=== PATIENT | male | born 1960 | race Caucasian/White ===

== ENCOUNTER 2017-04-13 20:16 | Emergency (ER) | payer BC ==
--- NOTE | 2017-04-13 20:28 | Emergency Department Record ---
History of Present Illness - General Chief Complaint: Wound, check Stated Complaint: POSS INFECTION ON RT HAND Time Seen by Provider: 04/13/17 20:23 Source: Patient, Old records reviewed Limitations: No limitations - History of Present Illness Initial Comments: The patient is here due to pain and swelling onset today to the R dorsal hand around a sutured laceration. The patient was here yesterday at around 6pm due to a R hand laceration and had the wound stitched. He states there was no tendon injury. Today the area around the laceration is slightly swollen, red and tender. He denies any other issues and states he did receive a Td yesterday. Complaint: Wound re-check Onset/Timin -: Days(s) Initial Visit For: Laceration Returns Today for: Wound recheck Symptoms Since Prior Visit: Worsening pain, Worsening redness, Worsening swelling Associated Symptoms: None - Related Data Home Medications Medication Instructions Recorded Confirmed Last Taken Omeprazole 90 Days 04/12/17 Unknown Previous Rx's Medication Instructions Recorded Cephalexin [Keflex] 500 mg PO QID #28 cap 04/13/17 Allergies Allergy/AdvReac Type Severity Reaction Status Date / Time No Known Allergies Allergy Unverified 04/12/17 19:47 Travel Screening - Travel/Exposure Within Last 30 Days Have you traveled within the last 30 days?: No - Travel/Exposure Within Last Year Have you traveled outside the [place] in the last year?: No - Additonal Travel Details Have you been exposed to anyone with a communicable illness?: No - Travel Symptoms Symptom Screening: None Past Medical History - SOCIAL HISTORY Smoking Status: Never smoker Alcohol Use: Rare Drug Use: None - RESPIRATORY Hx Respiratory Disorders: No - CARDIOVASCULAR Hx Cardio Disorders: No - NEURO Hx Neuro Disorders: No - GI Hx GI Disorders: No - Hx Genitourinary Disorders: No - ENDOCRINE Hx Endocrine Disorders: No - MUSCULOSKELETAL Hx Musculoskeletal Disorders: No - PSYCH Hx Psych Problems: No - HEMATOLOGY/ONCOLOGY Hx Hematology/Oncology Disorders: No Family Medical History Any Significant Family History?: No Physical Exam - General General Appearance: Alert, Oriented x3, Cooperative, No acute distress - Head Head exam: Atraumatic, Normocephalic, Normal inspection - Eye Eye exam: Normal appearance, PERRL - Extremities Extremities exam: Full ROM (There is normal ROM to the R 2nd finger with only mild superficial skin pain with full extension.), Normal capillary refill, Tenderness. negative: Normal inspection (There is slight swelling, erythema, and tenderness surrounding the R dorsal hand laceration. ) Image of Hand: 1 - laceration already sutured. Course Vital Signs 04/13/17 20:18 Temperature 98.3 F Pulse Rate 89 Respiratory 20 Rate Blood Pressure 137/95 Pulse Ox 96 - Reevaluation(s) Reevaluation #1: The patient is doing well. I did discuss the xrays with him and the need for warm compresses, elevation and oral Abx's. He is to return to the ER if not better tomorrow. 04/13/17 21:16 Medical Decision Making - Data Complexity MDM Data: X-Ray Ordered and/or Reviewed - Radiology Data Radiology results: Report reviewed (R Hand: No acute injury, FB or soft tissue gas per Rad.) Disposition Disposition: Discharge Clinical Impression: Infected wound Disposition: Home, Self-Care Condition: (1) Good Instructions: Wound Infection (ED) Additional Instructions: Please use warm compresses to the R hand during the day and elevate when possible. Please continue the Keflex as directed. Please return to the ER tomorrow if the hand is not better or for any worsening signs of infection such as pain, swelling, or redness. Prescriptions: Cephalexin [Keflex] 500 mg PO QID #28 cap Forms: Patient Portal Access Time of Disposition: 21:18 Quality - Quality Measures Quality Measures: N/A - Blood Pressure Screening View Details: Yes Blood Pressure Classification: Hypertensive Reading Systolic Measurement: 137 Diastolic Measurement: 95 Screening for High Blood Pressure: < Pre-Hypertensive BP, F/U Documented > [ [id number]] Pre-Hypertensive Follow-up Interventions: Follow-up with rescreen every year.
[2017-04-13] MEDS: CEFAZOLIN 2 Gram 2 GM/50 ML BAG IVPB ONE (20:42)
[2017-04-13] MEDS: CEPHALEXIN 500 MG CAPSULE PO STA (21:22)
--- NOTE | 2017-04-14 15:04 | RADIOLOGY REPORT ---
EXAM: RIGHT HAND HISTORY: INJURY. TECHNIQUE: Three views of the right hand were obtained. Comparison: none. Encounter: Initial. FINDINGS: Deformity of the distal tuft of the third digit may relate to old trauma. Negative for acute fracture or dislocation. Dorsal soft tissue swelling. No soft tissue gas. IMPRESSION: 1. DORSAL SOFT TISSUE SWELLING. NO SOFT TISSUE GAS. 2. PROBABLE OLD TRAUMA OF THE DISTAL THIRD DIGIT. JOB NUMBER: [id number] MTDD
== END 2017-04-13 21:38 | disposition home or self-care (01) ==
LOC: ER 20:16
DX: S61.411A Laceration without foreign body of right hand, initial encounter (principal); L08.9 Local infection of the skin and subcutaneous tissue, unspecified
CPT/HCPCS: 96374; 99284